=== PATIENT | female | born 1990 | race Caucasian/White ===

== ENCOUNTER → 2019-03-11 | Emergency (ER) | payer OTHER ==
[~2019-03-11] VITALS: Ht 165.1 cm; Wt 68.0 kg
[~2019-03-11] MED LIST: ASPIRIN EC81 MG PO; ELIQUIS5 MG PO; METOPROLOL SUCC25 MG PO; METOPROLOL TAR100 MG PO
--- NOTE | 2019-03-12 07:15 | EKG ---
[facility] [address] [place], [place] [address] Signed Atrial fibrillation Right bundle branch block , plus right ventricular hypertrophy Abnormal ECG When compared with ECG of 11-MAR-2019 11:56, (Unconfirmed) No significant change was found Confirmed by ABILIO HATCH MD ([id number]) on 03/12/2019 7:15:31 AM Electronically Signed By: ABILIO HATCH MD 03/12/19 0715 PATIENT NAME: PADILLA ARRINGTON Electrocardiogram DATE OF : [birth year] PHYSICIAN: ABILIO HATCH MD REPORT #: [id number] REPORT IS CONFIDENTIAL AND NOT TO BE RELEASED WITHOUT AUTHORIZATION
--- NOTE | 2019-03-12 07:15 | EKG ---
[facility] [address] [facility] [place], [place] Signed Atrial fibrillation with rapid ventricular response Right bundle branch block , plus right ventricular hypertrophy Abnormal ECG No previous ECGs available Confirmed by ABILIO HATCH MD ([id number]) on 03/12/2019 7:15:14 AM Electronically Signed By: ABILIO HATCH MD 03/12/19 0715 PATIENT NAME: PADILLA ARRINGTON Electrocardiogram DATE OF : [birth year] PHYSICIAN: ABILIO HATCH MD REPORT #: [id number] REPORT IS CONFIDENTIAL AND NOT TO BE RELEASED WITHOUT AUTHORIZATION
== END ==
LOC: ED 11:20
DX: I48.91 Unspecified atrial fibrillation (principal); Z87.891 Personal history of nicotine dependence; Z88.1 Allergy status to other antibiotic agents; Z88.0 Allergy status to penicillin; Z88.8 Allergy status to other drugs, medicaments and biological substances; Z79.82 Long term (current) use of aspirin; Z79.899 Other long term (current) drug therapy
CPT/HCPCS: 36415; 71045; 80053; 84443; 84484; 85025; 85379; 85610; 85730; 93005; 93010; 96361; 96374; 99284-25; J1650; J7030

== ENCOUNTER 2020-07-06 09:28 | Emergency (ER) | payer OTHER ==
[~2020-07-06] VITALS: Ht 165.1 cm; Wt 81.7 kg
[~2020-07-06 09:28] MED LIST changes: +GABAPENTIN300 MG PO; +KEFLEX500 MG PO; +ONDANSETRON ODT4 MG PO
--- OUTSIDE RECORDS SUMMARY | 2020-07-06 09:32 | XMS ---
PreManage Notification: PADILLA ARRINGTON Security Plater Barrel Events No recent Security Events currently on file CRITERIA MET - [facility] Care Guidelines CARE PROVIDERS There are no care providers on record at this time. Guidelines Source: [employer] [facility] Guidelines Date: 07/29/2019 Care Coordination: Member is currently enrolled in Mental Health Services through [employer]. If services are needed through [employer] please call: Missy [phone] [place]; [phone] Crisis [phone] E.D. VISIT COUNT (12 MO.) 1 [facility] TOTAL 1 NOTE: Visits indicate total known visits. ED/UCC VISIT TRACKING (12 MO.) 07/06/2020 09:29 [facility] [place] TYPE: Emergency COMPLAINT: - HIGH HEART RATE INPATIENT VISIT TRACKING (12 MO.) No inpatient visits to display in this time frame [email or web address]
[2020-07-06] MEDS ORDERED: OMEPRAZOLE20 MG PO (09:44)
[2020-07-06] MEDS ORDERED: METHOCARBAMOL750 MG PO (09:45)
--- NOTE | 2020-07-06 20:48 | EKG ---
[facility] [address] [place] [address] Signed Atrial fibrillation with rapid ventricular response Right bundle branch block , plus right ventricular hypertrophy Abnormal ECG When compared with ECG of 11-MAR-2019 14:29, Vent. rate has increased BY 43 BPM Confirmed by ABILIO HATCH MD ([id number]) on 07/06/2020 8:48:32 PM Electronically Signed By: ABILIO HATCH MD 07/06/202047 PATIENT NAME: PADILLA ARRINGTON Electrocardiogram DATE OF : [birth year] PHYSICIAN: ABILIO HATCH MD REPORT #: [id number] REPORT IS CONFIDENTIAL AND NOT TO BE RELEASED WITHOUT AUTHORIZATION
--- NOTE | 2020-07-06 20:49 | EKG ---
[facility] [address] [place] [address] Signed Marked sinus bradycardia with sinus arrhythmia Right bundle branch block , plus right ventricular hypertrophy Left posterior fascicular block Bifascicular block Abnormal ECG When compared with ECG of 06-JUL-2020 09:52, (Unconfirmed) Sinus rhythm has replaced Atrial fibrillation Vent. rate has decreased BY 88 BPM T wave inversion less evident in Anterior leads Confirmed by ABILIO HATCH MD ([id number]) on 07/06/2020 8:49:03 PM Electronically Signed By: ABILIO HATCH MD 07/06/202048 PATIENT NAME: PADILLA ARRINGTON Electrocardiogram DATE OF : [birth year] PHYSICIAN: ABILIO HATCH MD REPORT #: [id number] REPORT IS CONFIDENTIAL AND NOT TO BE RELEASED WITHOUT AUTHORIZATION
== END 2020-07-06 15:24 | disposition home or self-care (01) ==
LOC: ED 09:28
DX: I48.91 Unspecified atrial fibrillation (principal); R00.1 Bradycardia, unspecified; F17.200 Nicotine dependence, unspecified, uncomplicated; Z88.1 Allergy status to other antibiotic agents; Z88.8 Allergy status to other drugs, medicaments and biological substances; Z88.0 Allergy status to penicillin; Z79.899 Other long term (current) drug therapy
CPT/HCPCS: 80053; 83735; 84484; 85025; 92960; 93005; 93010; 99285-25; 99406; J2704

== ENCOUNTER 2020-09-23 14:47 | Emergency (ER) | payer OTHER ==
[~2020-09-23] VITALS: Ht 165.1 cm; Wt 81.7 kg
[~2020-09-23 14:47] MED LIST changes: +METHOCARBAMOL750 MG PO; +OMEPRAZOLE20 MG PO
--- OUTSIDE RECORDS SUMMARY | 2020-09-23 14:58 | XMS ---
PreManage Notification: PADILLA ARRINGTON Security Cloth Winder Events No recent Security Events currently on file CRITERIA MET - [facility] - Has Care Guidelines CARE PROVIDERS KATHY [facility] 07/07/2020-Current PHONE: [phone] Guidelines Source: [facility] Guidelines Date: 07/29/2019 Care Coordination: Member is currently enrolled in Mental Health Services through [facility]. 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 E.D. VISIT COUNT (12 MO.) 2 [facility] TOTAL 2 NOTE: Visits indicate total known visits. ED/UCC VISIT TRACKING (12 MO.) 09/23/2020 14:48 [facility] [place] TYPE: Emergency COMPLAINT: - HIGH HEART RATE 07/06/2020 09:29 [facility] TYPE: Emergency COMPLAINT: - HIGH HEART RATE DIAGNOSES: - Allergy status to other antibiotic agents - Allergy status to other drugs, medicaments and biological substances - Other intermediate manager (current) drug therapy - Palpitations - Bradycardia, unspecified - Unspecified atrial fibrillation - Allergy status to penicillin - Nicotine dependence, unspecified, uncomplicated INPATIENT VISIT TRACKING (12 MO.) No inpatient visits to display in this time frame [email or web address]
[2020-09-23] MEDS ORDERED: FLUTICASONE PRO16 GM NAS (15:02)
--- NOTE | 2020-09-25 08:50 | EKG ---
[facility] [address] [place] [address] Signed Atrial fibrillation with rapid ventricular response Right bundle branch block , plus right ventricular hypertrophy Left posterior fascicular block Bifascicular block Abnormal ECG When compared with ECG of 06-JUL-2020 12:33, MA interval has increased Vent. rate has increased BY 81 BPM T wave inversion more evident in Anterior leads Confirmed by TASH GOOD MD ([id number]) on 09/25/2020 8:49:57 AM Electronically Signed By: TASH GOOD MD 09/25/20 0850 PATIENT NAME: PADILLA ARRINGTON Electrocardiogram DATE OF : [birth year] PHYSICIAN: TASH GOOD MD REPORT #: [id number] REPORT IS CONFIDENTIAL AND NOT TO BE RELEASED WITHOUT AUTHORIZATION
--- NOTE | 2020-09-25 08:52 | EKG ---
[facility] [address] [place] [address] Signed Wide QRS rhythm Right bundle branch block Left posterior fascicular block Bifascicular block Abnormal ECG When compared with ECG of 23-SEP-2020 15:04, (Unconfirmed) Wide QRS rhythm has replaced Atrial fibrillation Vent. rate has decreased BY 76 BPM Confirmed by TASH GOOD MD ([id number]) on 09/25/2020 8:52:15 AM Electronically Signed By: TASH GOOD MD 09/25/20 0852 PATIENT NAME: PADILLA ARRINGTON Electrocardiogram DATE OF : [birth year] PHYSICIAN: TASH GOOD MD REPORT #: [id number] REPORT IS CONFIDENTIAL AND NOT TO BE RELEASED WITHOUT AUTHORIZATION
== END 2020-09-23 20:44 | disposition home or self-care (01) ==
LOC: ED 14:47
PROC: 5A2204Z Restoration of Cardiac Rhythm, Single (ICD-10-PCS; principal; 2020-09-23)
DX: I48.91 Unspecified atrial fibrillation (principal); F17.200 Nicotine dependence, unspecified, uncomplicated; Z88.1 Allergy status to other antibiotic agents; Z88.0 Allergy status to penicillin; Z79.899 Other long term (current) drug therapy; Z88.8 Allergy status to other drugs, medicaments and biological substances
CPT/HCPCS: 80053; 83735; 84484; 85025; 92960; 93005; 93010; 99152; 99285-25; J2270; J2704; J7030

== ENCOUNTER 2021-01-06 18:53 | Emergency (ER) | payer OTHER ==
[~2021-01-06] VITALS: Ht 165.1 cm; Wt 81.7 kg
[~2021-01-06 18:53] MED LIST changes: +FLUTICASONE PRO16 GM NAS
--- OUTSIDE RECORDS SUMMARY | 2021-01-06 18:56 | XMS ---
PreManage Notification: PADILLA ARRINGTON Security Glass Scullion Events No recent Security Events currently on file CRITERIA MET - [facility] - [facility] - Has Care Guidelines CARE PROVIDERS KATHY [facility] 07/07/2020-Current PHONE: [phone] Guidelines Source: [facility] Guidelines Date: 07/29/2019 Care Coordination: Member is currently enrolled in Mental Health Services through [employer]. 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 E.D. VISIT COUNT (12 MO.) 3 [facility] TOTAL 3 NOTE: Visits indicate total known visits. ED/UCC VISIT TRACKING (12 MO.) 01/06/2021 18:53 [facility] [place] TYPE: Emergency COMPLAINT: - N/V 09/23/2020 14:48 [facility] [place] TYPE: Emergency COMPLAINT: - HIGH HEART RATE DIAGNOSES: - Allergy status to other antibiotic agents - Nicotine dependence, unspecified, uncomplicated - Allergy status to penicillin - Allergy status to other drugs, medicaments and biological substances - Other roasterman (current) drug therapy - Unspecified atrial fibrillation 07/06/2020 09:[address] [facility] [place] TYPE: Emergency COMPLAINT: - HIGH HEART RATE DIAGNOSES: - Allergy status to other antibiotic agents - Allergy status to other drugs, medicaments and biological substances - Other roasterman (current) drug therapy - Palpitations - Bradycardia, unspecified - Unspecified atrial fibrillation - Allergy status to penicillin - Nicotine dependence, unspecified, uncomplicated INPATIENT VISIT TRACKING (12 MO.) No inpatient visits to display in this time frame [email or web address]
== END 2021-01-06 22:32 | disposition home or self-care (01) ==
LOC: ED 18:53
DX: R11.2 Nausea with vomiting, unspecified (principal); R19.7 Diarrhea, unspecified; R50.9 Fever, unspecified; I48.91 Unspecified atrial fibrillation; F17.200 Nicotine dependence, unspecified, uncomplicated; Z88.0 Allergy status to penicillin; Z20.822 Contact with and (suspected) exposure to COVID-19; Z88.6 Allergy status to analgesic agent; Z88.1 Allergy status to other antibiotic agents; Z79.01 Long term (current) use of anticoagulants; Z79.899 Other long term (current) drug therapy
CPT/HCPCS: 80053; 81001; 84703; 85025; 96374; 99283-25; A9270; C9803; J2405; J7030; U0003

== ENCOUNTER 2022-02-25 11:23 | Emergency (ER) | payer OTHER ==
[~2022-02-25] VITALS: Ht 165.1 cm; Wt 81.7 kg
--- OUTSIDE RECORDS SUMMARY | 2022-02-25 11:26 | XMS ---
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 E.D. VISIT COUNT (12 MO.) 1 [facility] TOTAL 1 NOTE: Visits indicate total known visits. ED/UCC VISIT TRACKING (12 MO.) 02/25/2022 11:24 [facility] [place] TYPE: Emergency COMPLAINT: - TOOTH PAIN INPATIENT VISIT TRACKING (12 MO.) No inpatient visits to display in this time frame [email or web address]
--- NOTE | 2022-02-26 07:01 | EKG ---
[facility] [address] [facility] [place] [address] Signed Normal sinus rhythm with sinus arrhythmia Right bundle branch block , plus right ventricular hypertrophy Left posterior fascicular block Bifascicular block Abnormal ECG When compared with ECG of 23-SEP-2020 20:05, Sinus rhythm has replaced Wide QRS rhythm Confirmed by ABILIO HATCH MD ([id number]) on 02/26/2022 7:01:40 AM Electronically Signed By: ABILIO HATCH MD 02/26/22 0701 PATIENT NAME: PADILLA ARRINGTON Yasmani Electrocardiogram DATE OF : [birth year] PHYSICIAN: ABILIO HATCH MD REPORT #: [id number] REPORT IS CONFIDENTIAL AND NOT TO BE RELEASED WITHOUT AUTHORIZATION
== END 2022-02-25 12:30 | disposition left against medical advice (07) ==
LOC: ED 11:23
DX: Z53.21 Procedure and treatment not carried out due to patient leaving prior to being seen by health care provider (principal)
CPT/HCPCS: 93005; 93010

== ENCOUNTER 2022-05-14 18:08 | Emergency (ER) | payer OTHER ==
[~2022-05-14] VITALS: Ht 165.1 cm; Wt 72.6 kg
--- OUTSIDE RECORDS SUMMARY | 2022-05-14 19:18 | XMS ---
PreManage Notification: PADILLA ARRINGTON Security Civil Rights Investigator Events No recent Security Events currently on file CRITERIA MET - [facility] CARE PROVIDERS -[facility]- Dentist: [facility] PHONE: [phone] Rajni Heredia-C Nurse Practitioner: Family Current PHONE: [phone] KATHY [facility] 07/07/2020-Current PHONE: [phone] Care Guidelines exist for the following facilities: [facility] ( 07/29/2019 ) Care History Medical/Surgical 07/07/2020 [facility] - 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 Sarah VISIT COUNT (12 MO.) 2 [facility] [facility]. TOTAL 2 NOTE: Visits indicate total known visits. ED/UCC VISIT TRACKING (12 MO.) 05/14/2022 18:10 [facility] TYPE: Emergency COMPLAINT: - SOB POSS AFIB 02/25/2022 11:24 [facility] [place] TYPE: Emergency COMPLAINT: - TOOTH PAIN DIAGNOSES: - Procedure and treatment not carried out due to patient leaving prior to being seen by health care provider INPATIENT VISIT TRACKING (12 MO.) No inpatient visits to display in this time frame [id number]
[2022-05-14] MEDS ORDERED: TOPROL XL200 MG PO (23:50)
--- NOTE | 2022-05-15 07:35 | EKG ---
[facility] [address] [place] [address] Signed Sinus tachycardia Right bundle branch block , plus right ventricular hypertrophy Left posterior fascicular block Bifascicular block T wave abnormality, consider inferior ischemia Abnormal ECG When compared with ECG of 25-FEB-2022 11:44, Vent. rate has increased BY 57 BPM Confirmed by ABILIO HATCH MD ([id number]) on 05/15/2022 7:35:10 AM Electronically Signed By: ABILIO HATCH MD 05/15/22 0735 PATIENT NAME: PADILLA ARRINGTON Electrocardiogram DATE OF : [birth year] PHYSICIAN: ABILIO HATCH MD REPORT #: [id number] REPORT IS CONFIDENTIAL AND NOT TO BE RELEASED WITHOUT AUTHORIZATION
--- NOTE | 2022-05-16 07:53 | EKG ---
[facility] [address] [facility] [place] [address] Signed Sinus tachycardia Right bundle branch block Left anterior fascicular block Bifascicular block Abnormal ECG No previous ECGs available Confirmed by ABILIO HATCH MD ([id number]) on 05/16/2022 7:52:58 AM Electronically Signed By: ABILIO HATCH MD 05/16/22 0753 PATIENT NAME: PADILLA ARRINGTON Electrocardiogram DATE OF : [birth year] PHYSICIAN: ABILIO HATCH MD REPORT #: [id number] REPORT IS CONFIDENTIAL AND NOT TO BE RELEASED WITHOUT AUTHORIZATION
== END 2022-05-15 00:06 | disposition home or self-care (01) ==
LOC: ED 18:08
DX: R00.0 Tachycardia, unspecified (principal); Z20.822 Contact with and (suspected) exposure to COVID-19; I48.91 Unspecified atrial fibrillation; F17.200 Nicotine dependence, unspecified, uncomplicated; Z88.8 Allergy status to other drugs, medicaments and biological substances; Z88.0 Allergy status to penicillin; Z88.1 Allergy status to other antibiotic agents; Z79.899 Other long term (current) drug therapy
CPT/HCPCS: 36415; 71045; 80053; 83735; 83880; 84443; 84484; 85025; 93005; 93010; 96374; 96375; 96376; 99285-25; C9803; J7121; U0003

== ENCOUNTER 2024-04-09 18:42 | Emergency (ER) | payer OTHER ==
[~2024-04-09] VITALS: Ht 165.1 cm; Wt 93.0 kg
[~2024-04-09 18:42] MED LIST changes: +TOPROL XL200 MG PO
[2024-04-09] MEDS ORDERED: METOPROLOL TART25 MG PO (18:55)
[2024-04-09] MEDS ORDERED: IRON325 M1 PO (18:56)
[2024-04-09] MEDS ORDERED: CYCLOBENZAPRINE10 MG PO ×2 (18:56→20:29)
[2024-04-09] MEDS ORDERED: BUPROPION XL150 MG PO (18:56)
[2024-04-09] MEDS ORDERED: OMEPRAZOLE40 MG PO (18:56)
[2024-04-09 19:09] LABS: BASOPHILS 0.9 % (0-2); HEMATOCRIT 39.8 % (35.0-50.0); HEMOGLOBIN 13.6 g/dL (12.0-18.0); LYMPHOCYTES 24.9 % (24-44); MCH 30.6 (27-36); MCHC 34.3 g/dl (30-36); MCV 89.1 fl (81-99); MONOCYTES 8.4 % (0-12); NEUTROPHILS 64.8 % (39-80); PLATELET COUNT 211 K/uL (140-440); RBC 4.47 M/ul (4.3-5.7); RDW 14.4 (10.5-15.0)
[2024-04-09 19:12] LABS: INR 1.05 (0.80-1.30); PROTIME 13.6 Sec (11.2-14.2)
[2024-04-09] MEDS ORDERED: NITROGLYCERIN 0.4 MG SUBL SL PRN (19:15)
[2024-04-09 19:19] LABS: ALBUMIN 3.9 g/dL (3.4-5.0); ALBUMIN/GLOBULIN RATIO 1.08 (1.1-2.4); ANION GAP 12.3 (7-21); BILIRUBIN, TOTAL 0.5 ng/dL (0.2-1.0); BUN/CREATININE RATIO 10.84 (6.0-28.6); CREATININE, SERUM 0.83 mg/dL (0.55-1.02); MAGNESIUM 1.9 mg/dL (1.8-2.4); POTASSIUM 3.3 mmol/L (3.5-5.1); PROTEIN, TOTAL 7.5 g/dL (6.4-8.2)
[2024-04-09] MEDS ORDERED: MORPHINE SULFATE 4 MG/ML VIAL IV ONE (19:30)
[2024-04-09] MEDS ORDERED: CYCLOBENZAPRINE HCL 10 MG HOME.PACK PO ONE (20:45)
[2024-04-09 20:56] VITALS: BP 118/71
--- NOTE | 2024-04-10 10:51 | EKG ---
[facility] [address] [place] [address] Signed Sinus rhythm with fusion complexes Right bundle branch block , plus right ventricular hypertrophy Left posterior fascicular block Bifascicular block Abnormal ECG When compared with ECG of 21-OCT-2022 07:32, fusion complexes are now present Vent. rate has decreased BY 41 BPM Confirmed by Sangeeta Gunter MD ([id number]) on 04/10/2024 10:51:03 AM Electronically Signed By: SANGEETA GUNTER MD 04/10/24 1051 PATIENT NAME: PADILLA ARRINGTON Electrocardiogram DATE OF : [birth year] PHYSICIAN: SANGEETA GUNTER MD REPORT #: [id number] REPORT IS CONFIDENTIAL AND NOT TO BE RELEASED WITHOUT AUTHORIZATION
== END 2024-04-09 20:45 | disposition home or self-care (01) ==
LOC: ED 18:42
PROVIDERS: Family Medicine
DX: R07.1 Chest pain on breathing (principal); I48.91 Unspecified atrial fibrillation; F17.200 Nicotine dependence, unspecified, uncomplicated; Z79.01 Long term (current) use of anticoagulants; Z88.1 Allergy status to other antibiotic agents; Z88.5 Allergy status to narcotic agent; Z88.0 Allergy status to penicillin; Z79.899 Other long term (current) drug therapy
CPT/HCPCS: 36415; 71045; 80053; 83690; 83735; 83880; 84484; 84703; 85025; 85379; 85610; 93005; 93010; 96374; 99285-25; J2270

== ENCOUNTER 2024-09-25 07:56 | Day surgery (SDC) | payer OTHER ==
--- NOTE | 2024-01-15 09:35 | NUR ---
PT HER TO PRE-ADMIT, PT IS ON ELQUIS BID AND HAD NOT STOPED IT FOR HER PROCUDER ON 01-17-24. EXPLAINED TO PT THAT SHE NEEDS TO BE OFF THIS MEDICATION 5 DAYS BEFORE HER SURGERY. PT STATES "NO ONE TOLD ME THAT I NEEDED TO BE OFF THIS MEDICATION" TOLD PT IF SHE HAD MADE HER PRE-ADMIT APPOINTMENT LAST WEEK SHE WOULD HAVE BEEN INFORMED AND WOULD HAVE HAD PLANTY OF TIME WITH THIS MEDICATION TO BE STOPED. PT THEN STATES " I HAVE BEEN WORKING LOTS "
[2024-09-19 10:59] VITALS: BP 117/69
[~2024-09-25] VITALS: Ht 167.6 cm; Wt 91.0 kg
[~2024-09-25 07:56] MED LIST changes: +BUPROPION XL150 MG PO; +CEFAZOLIN SODIUM 2 GM/20 ML SYR IV ONE; +CYCLOBENZAPRINE10 MG PO; +GLUCAGON,HUMAN RECOMBINANT 1 MG/ML VIAL ONE; +IBLOOD GLUCOSE TEST STRIP 1 EA TEST VI PRN; +IRON325 M1 PO; +LACTATED RINGER'S 1,000 ML IV SCH; +LIDOCAINE HCL 1% 5 ML SDV INJ ONE; +LIDOCAINE HCL 2% 5 ML SDV ONE; +METOPROLOL TART25 MG PO; +OMEPRAZOLE40 MG PO; +PRENATAL 19 TA1 EAC2 PO
[2024-09-25 08:22] VITALS: BP 125/73
[2024-09-25] MEDS ORDERED: CEFAZOLIN SODIUM 2 GM/20 ML SYR IV ONE (08:45)
[2024-09-25] MEDS ORDERED: GLUCAGON,HUMAN RECOMBINANT 1 MG/ML VIAL ONE (09:04)
[2024-09-25] MEDS ORDERED: LIDOCAINE 2% (VISCOUS) HCL 15 ML UDC MT ONE (09:15)
[2024-09-25] MEDS ORDERED: PHENYLEPHRINE HCL 10 MG/ML VIAL ONE (09:33)
[2024-09-25] MEDS ORDERED: KETAMINE in NS 50 MG/5 ML SYR ONE (09:42)
[2024-09-25] MEDS ORDERED: DEXAMETHASONE SOD PHOS 4 MG/ML VIAL ONE (10:07)
--- NOTE | 2024-09-25 10:33 | NUR ---
09/25/24 1033 Isatu Hicks 1020- PT PRESENTS TO PACU, LEFT LATERAL POSITION. REACTIVE TO STIMULUS BUT FALLS BACK TO SLEEP. LR INFUSING TO RFA IV, BREATHING EVEN AND NON LABORED ON ROOM AIR. ABD ROUND AND FIRM, ALL MONITORS IN PLACE. 1030- PT WAKES TO VERBAL STIMULI, ENCOURAGED TO PASS GAS, DENIES PAIN AND NAUSEA. PT FALLS BACK TO SLEEP. 1033- LR COMPLETE AT THIS TIME.
[2024-09-25 11:08] VITALS: BP 114/58
--- NOTE | 2024-09-26 12:30 | OR ---
[facility] [address] [place], [place] [address] Signed DATE OF OPERATION: 09/25/2024 SURGEON: Blaine George DO PREOPERATIVE DIAGNOSES: 1. Refractory gastroesophageal reflux disease. 2. Rectal bleeding. POSTOPERATIVE DIAGNOSES: 1. Refractory gastroesophageal reflux disease. 2. Rectal bleeding. 3. LA grade A distal esophagitis. 4. Gastritis. 5. Gastric body polyp. 6. Nonspecific colitis. PROCEDURES PERFORMED: 1. Esophagogastroduodenoscopy with biopsy of polyp. 2. Colonoscopy. ANESTHESIA: IV sedation. EBL: Minimal. DRAINS: None. COMPLICATIONS: None. DESCRIPTION OF PROCEDURE: The patient was brought to the GI lab, placed in supine position. After induction of IV sedation through preanesthetized oropharynx and a bite block, Olympus video endoscope was introduced into the mouth, directed through the length of the upper esophagus, middle esophagus, distal esophagus esophagus. Some LA grade A esophagitis was noted with no evidence of ulcerations noted. Scope was advanced to the stomach. General exploration was carried out. Some nonspecific colitis noted in the antrum and in the mid gastric body, a prominent polyp was noted approximately 1 cm in diameter. Electronically Signed By: BLAINE GEORGE DO 09/26/24 0829 PATIENT NAME: PADILLA ARRINGTON OPERATIVE REPORT DATE OF : [birth year] REPORT #: [id number] PHYSICIAN: BLAINE GEORGE DO PCP: KIARA ULLOA PAC REPORT IS CONFIDENTIAL AND NOT TO BE RELEASED WITHOUT AUTHORIZATION [facility] [address] [facility] [place] [address] Signed Cold biopsies were taken of this polyp and specimen was passed off the field. Scope was advanced through the pylorus, first and second portion of duodenum, essentially unremarkable. The scope was brought back into the stomach. The stomach was decompressed. The scope was withdrawn in its entirety. The patient was then placed in the left lateral position and padded to the satisfaction of anesthesia. The Olympus video colonoscope was then introduced into the rectum, insufflated under direct visualization. The scope was advanced through the rectum, rectosigmoid, sigmoid colon, descending colon, transverse colon, ascending colon, and to the cecum. The scope was then fully insufflated and the mucosal surface was fully visualized. The scope was withdrawn. The ascending colon and cecum had no intrinsic or extrinsic mass noted. The scope was brought back past the hepatic flexure to the transverse colon. Transverse colon had no intrinsic or extrinsic masses noted. The scope was brought back past the splenic flexure and to the descending colon. No intrinsic or extrinsic mass was noted, except for some nonspecific colitis was noted. The scope was brought back into sigmoid and rectosigmoid. No intrinsic or extrinsic masses were noted. Nonspecific colitis was noted as well. The rectum was unremarkable. The scope was withdrawn. The patient tolerated the procedure well and went to recovery room in satisfactory condition. DO GHADA Mera/JIMIL /[id number] Copies: ~ Electronically Signed By: BLAINE GEORGE DO 09/26/24 0829 PATIENT NAME: PADILLA ARRINGTON OPERATIVE REPORT DATE OF : [birth year] REPORT #: [id number] PHYSICIAN: BLAINE GEORGE DO PCP: KIARA ULLOA PAC REPORT IS CONFIDENTIAL AND NOT TO BE RELEASED WITHOUT AUTHORIZATION
--- NOTE | 2024-09-27 14:02 | PATH ---
[facility] [address] [place], [place] [address] Signed SPECIMEN(S): A STOMACH POLYP SPECIMEN SOURCE: A. STOMACH POLYP CLINICAL HISTORY: , Rectal bleeding, gastric polyp, gastritis, LA grade a esophagitis, nonspecific colitis FINAL PATHOLOGIC DIAGNOSIS: Stomach polyp - Fundic gland polyp, benign. AMB MICROSCOPIC EXAMINATION: Histologic sections of all submitted blocks are examined by light microscopy. These findings, together with the gross examination, support the pathologic diagnosis. GROSS DESCRIPTION: The specimen, labeled and designated "Yue, stomach polyp," is received in formalin and consists of one stoll soft tissue fragment, 0.3 cm. Entirely submitted in (A1). VB (under the direct supervision of a pathologist) The Gross Description was prepared using a voice recognition system. The report was reviewed for accuracy; however, sound-alike word errors, addition and/or deletions may occur. If there is any question about this report, please contact Client Services. ADDITIONAL NOTES: Immunohistochemical and/or in situ hybridization studies if performed in this case included appropriate positive controls that reacted as expected. This test was developed and its performance characteristics determined by [facility]. It has not been cleared or approved by the U.S. Food and Drug Administration. The FDA has determined that such clearance or approval is not necessary. This test is used for clinical purposes. It should not be regarded as investigational or for research. [facility] is certified under the Clinical Laboratory Improvement Amendments of 1988 (CLIA) as qualified to perform high complexity clinical laboratory testing. PATIENT NAME: PADILLA ARRINGTON PATHOLOGY DATE OF : [birth year] REPORT #: [id number] PHYSICIAN: SOFIA LUNDY PCP: KIARA ULLOA PAC REPORT IS CONFIDENTIAL AND NOT TO BE RELEASED WITHOUT AUTHORIZATION [facility] [address] [facility] [place], [place] [address] Signed PERFORMING LABORATORY: Technical component was performed by [facility], [address] [place] [address] (CLIA# [id number]). Professional interpretation was performed by [facility] - [address] [id number] [id number] Diagnostician: Dana Eagle MD Pathologist Electronically Signed 09/27/2024 Copies: ~ PATIENT NAME: PADILLA ARRINGTON PATHOLOGY DATE OF : [birth year] REPORT #: [id number] PHYSICIAN: SOFIA LUNDY PCP: KIARA ULLOA PAC REPORT IS CONFIDENTIAL AND NOT TO BE RELEASED WITHOUT AUTHORIZATION
== END 2024-09-25 11:15 | disposition home or self-care (01) ==
LOC: OPS 07:56 → DS 07:56 → OPS 09:00
PROVIDERS: ATTEND Surgery
PROC: 0DB68ZX Excision of Stomach, Via Natural or Artificial Opening Endoscopic, Diagnostic (ICD-10-PCS; principal; 2024-09-25 09:00)
PROC: 0DJD8ZZ Inspection of Lower Intestinal Tract, Via Natural or Artificial Opening Endoscopic (ICD-10-PCS; 2024-09-25 09:00)
DX: K21.00 Gastro-esophageal reflux disease with esophagitis, without bleeding (principal); K62.5 Hemorrhage of anus and rectum; K31.7 Polyp of stomach and duodenum; K29.70 Gastritis, unspecified, without bleeding; K52.9 Noninfective gastroenteritis and colitis, unspecified; Z79.899 Other long term (current) drug therapy; Z79.01 Long term (current) use of anticoagulants; Z88.0 Allergy status to penicillin; Z88.6 Allergy status to analgesic agent; Z88.1 Allergy status to other antibiotic agents
CPT/HCPCS: 00813; 88305; J0690; J1100; J1610; J2003; J2371; J2704; J3490; J7121